=== PATIENT | female | born 1960 | race Caucasian/White ===

== ENCOUNTER 2022-05-14 07:51 | Outpatient (CLI) | payer SELFPAY ==
--- NOTE | 2022-05-14 08:15 | MR_ITS ---
[address] [address] Phone:?[phone] Fax:?[phone] Referring Physician Information: Kike Zuluaga M.D. [id number] [facility] [place] [address] Phone:?[phone] Fax:?[phone] Patient:Myriam Simpson D.O.B:?1960 Sex:?Female Phone:?[phone] [facility] MRN:?[id number] Exam Date:?05/14/2022 ? EXAM: MRI of the LEFT SHOULDER, without contrast CLINICAL INFORMATION: Female, 62 years old, with left shoulder pain since a fall on ice. INDICATION: Evaluate for rotator cuff tear. PRIOR SURGERY: None reported. PLAIN FILMS: Shoulder radiographs dated 04/30/2022. COMPARISONS: No prior MRIs available. TECHNICAL INFORMATION: Using a 1.5T MR scanner and a localizing surface coil: coronal obliques: PD, T2, STIR sagittal obliques: PD, T2 axials: PD, T2 SEDATION: None CONTRAST: None FINDINGS: Bones: Proximal humerus: Moderate edema-like signal is present throughout the posterolateral aspect of the greater tuberosity, without a discrete fracture (coronal STIR series 4 images 15-17). Moderate overlying periosteal edema is also present. No humeral Hill-Sachs or reverse Hill-Sachs lesion/impaction or contusion. Glenoid: No fracture or marrow edema/pathology. No osseous Bankart lesion. Rotator cuff and muscles/tendons: Supraspinatus: Mild supraspinatus tendinopathy, without tendon tear or muscle atrophy. Infraspinatus: No tendinopathy, tear or atrophy. Teres minor: No tendinopathy, tear or atrophy. Subscapularis: Mild tendinopathy of the superior distal subscapularis, without tendon tear or muscle atrophy. Deltoid: No strain or atrophy. Coracoacromial arch: Acromion morphology: The acromion has type II morphology. No discrete subacromial osseous spur or os acromiale. Acromiohumeral space: The acromiohumeral space measures 5.6 mm at its narrowest point (osseous distance). Coracohumeral space: The coracohumeral space is within normal limits. Acromioclavicular joint: Joint: No acute injury, arthropathy, or inferior hypertrophy. Ligaments: Coracoclavicular ligaments are intact. Bursae: Subacromial-subdeltoid: Mild subacromial-subdeltoid bursitis. Subcoracoid: No convincing subcoracoid bursal thickening/bursitis. Biceps tendon: The long head of the biceps tendon is present within the bicipital groove. The intra-articular and extra-articular segments are intact without tendinosis, tenosynovitis, or displacement. Glenohumeral joint: Effusion/cyst: No significant glenohumeral joint effusion. Articular cartilage: Humeral head: No osteochondral abnormalities. Glenoid: No osteochondral abnormalities. Loose bodies: No discrete intra-articular body within the joint. Labrum:?Intrasubstance degeneration and fraying is present throughout the superior labrum, but is of doubtful clinical significance (coronal PD series 5 images 10-15). Inferior glenohumeral ligament/axillary pouch:?Mild-moderate thickening of inferior capsuloligamentous structures (coronal PD series 5 images 11-16). Additionally, there is soft tissue thickening throughout the rotator interval (sagittal PD series 7 images 8-13). IMPRESSION: 1. Moderate contusion involving the posterolateral aspect of the greater tuberosity, without fracture. 2. Mild supraspinatus & subscapularis tendinopathy. No rotator cuff tendon tear. 3. Mild narrowing of the acromiohumeral space with mild subacromial-subdeltoid bursitis. However, there is no AC joint arthropathy or evidence of impingement at the AC joint. 4. Findings in keeping with any clinical symptoms of adhesive capsulitis. 5. Intrasubstance degeneration fraying of the superior labrum, which is of doubtful clinical significance. 6. No tendinopathy, displacement, or tear of the biceps long head tendon. 7. No full-thickness chondral defect or evidence of glenohumeral joint osteoarthritis. BC Electronically signed on 05/14/2022 11:05:00 AM by Nathaniel Bowles M.D.
== END 2022-05-14 07:52 | disposition home or self-care (01) ==
PROVIDERS: PCP Family Medicine; Visit Provider Orthopaedic Surgery Sports Medicine
DX: M25.512 Pain in left shoulder (principal); M75.52 Bursitis of left shoulder; M75.02 Adhesive capsulitis of left shoulder
CPT/HCPCS: 73221

== ENCOUNTER 2024-07-23 07:19 | Outpatient (CLI) | payer MEDICARE, SELFPAY ==
--- NOTE | 2024-07-23 10:04 | P.ANES_ITS ---
Anesthesia Charges Start Date/Time Anesthesia Start Date: 07/23/24 Anesthesia Start Time: 09:45 Stop Date/Time Anesthesia Stop Date: 07/23/24 Anesthesia Stop Time: 10:04 Coding CPT Codes CPT Codes: BENITO LWR INTST NDVA NOS - 10282 ([id number]) P1 - NORMAL HEALTHY PATIENT, QK - WATER RECLAMATION SYSTEMS OPERATOR 2-4 CNCRNT ANES PROC, QX - POLYMER CHEMIST SVC W/ MED DIRECTION
--- NOTE | 2024-07-23 10:04 | W.ANESCHARGE ---
Anesthesia Charges Start Date/Time Anesthesia Start Date: 07/23/24 Anesthesia Start Time: 09:45 Stop Date/Time Anesthesia Stop Date: 07/23/24 Anesthesia Stop Time: 10:04 Coding CPT Codes CPT Codes: BENITO LWR INTST NDME NOS - 99595 ([id number]) P1 - NORMAL HEALTHY PATIENT, QK - SOAKING PIT OPERATOR 2-4 CNCRNT ANES PROC, QX - CATERING COORDINATOR SVC W/ MED DIRECTION
--- NOTE | 2024-07-23 10:11 | P.ANES_ITS ---
Anesthesia Charges Start Date/Time Anesthesia Start Date: 07/23/24 Anesthesia Start Time: 09:45 Stop Date/Time Anesthesia Stop Date: 07/23/24 Anesthesia Stop Time: 10:04 Coding CPT Codes CPT Codes: BENITO LWR INTST NDCA NOS - 15670 ([id number]) P1 - NORMAL HEALTHY PATIENT, QK - PLANT SCIENCE PROFESSOR 2-4 CNCRNT ANES PROC, QX - WOOD PLANER SVC W/ MED DIRECTION
--- NOTE | 2024-07-23 10:11 | W.ANESCHARGE ---
Anesthesia Charges Start Date/Time Anesthesia Start Date: 07/23/24 Anesthesia Start Time: 09:45 Stop Date/Time Anesthesia Stop Date: 07/23/24 Anesthesia Stop Time: 10:04 Coding CPT Codes CPT Codes: BENITO LWR INTST NDNM NOS - 13619 ([id number]) P1 - NORMAL HEALTHY PATIENT, QK - POWER BRAKE OPERATOR 2-4 CNCRNT ANES PROC, QX - AUDIO ENGINEER SVC W/ MED DIRECTION
== END 2024-07-23 07:20 | disposition home or self-care (01) ==
LOC: OP CLINIC 07:21
PROVIDERS: PCP Family Medicine; Visit Provider Internal Medicine Gastroenterology
DX: Z12.11 Encounter for screening for malignant neoplasm of colon (principal); D12.2 Benign neoplasm of ascending colon
CPT/HCPCS: 00811; 45380; 88305; J2704

== ENCOUNTER 2024-08-23 10:30 | Outpatient (RCR) | payer MEDICARE, SELFPAY ==
--- NOTE | 2024-07-30 07:42 | PT.OPE ---
PT [facility] Outpatient Eval PT [facility] Outpatient Eval Start: 07/28/24 10:33 Freq: Status: Active Protocol: Document 07/29/24 07:34 ARR (Rec: 07/29/24 11:38 ARR [id number]) E-signed By Do Ford DPT Physical Therapy Outpatient Evaluation Insurance Information Recert Due Date 09/28/24 Insurance Name Medicare B Medical Diagnosis N32.81 overactive bladder R35.0 urinary frequency R19.4 frequent bowel movements Treating Diagnosis K59.00 Constipation, unspecified R35.0 urinary frequency Referring MD Glenna Najera, DO ([facility]) Subjective Subjective -Subjective: Pt noting urinating 2-3x at night this is a concern. Ongoing x 12 months. Has been taking Statin since spring 2021. Feels she isn?t very efficient with the urination. Looking to improve quality of life. Had a 9# 4 oz baby 30 yrs ago, feels everything is maybe sagging. 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 When diagnosed with atherosclerosis was referred here. -Urinary: Leakage every once in a while when laughing ? infrequent, less than 1x/month. --Delay of urination: yes --Urinary urgency (any incontinence): no --Strain to start or stop urine stream: slow flow. Does at times strain /push a little bit to get more urine out. Does note incomplete emptying. --Hydration: swimming drinks 20 oz then tries to get another 22 oz. Maybe 46 oz water. 16 oz coffee. --Daytime urination: 5-6x/day --Nocturia: 2-3x/night --Dysuria: urination --Pressure/heaviness: no -Bowel: Was checked for prolapse, provider didn?t think there was colon --Frequency: 1-3x/day. This has changed, feels more sluggish ? doesn?t feel as efficient. Has been taking Metamucil to help --[place] chart: went from type 7 then cut back on coffee and it transitioned to type 1-3, maybe 4. --Constipation: No --Do you feel bowels fully evacuate with BM: no --Fecal leakage: no --Fecal urgency: no --Straining with BM: no --Pain with BM: no --Do you use pressure with hands to assist with BM: has used pressure externally ?pushed more on the back --Flatus incontinence: no --Abdominal/rectal pain or symptoms: infrequently will have bad stomach cramps, will lay in bed with a heating pad. Will feel like stool is stuck. Maybe every 3 months this occurs. --Do you take bowel supplements: Metamucil infrequently , not regular. --Fiber intake: was recommended to increase to at least 25 g. -Sexual: no pain -Menstrual history: --Menopause age: around 58 y/o. Was prescribed vaginal estrogen by provider. Was a compounded Estriol ellage cream -: G/P 04/04 9# and 7#. Vaginal births. --Forceps or vacuum: no --Tearing or episiotomy: no stitches OTHER: --Any chronic yeast infections: no --Chronic UTIs: no --Vaginal dryness: no --Medications taken for bladder: none -Surgical PMHx: none -PMHx: osteopenia, elevated coronary artery calcium score, OAB, hyperlipidemia, athralgia -Current exercise: Does swim 3 days per week, has stayed active. Does dry land on off days when not swimming, 2x/wk. Does some sit ups, bosu ball. Does some things for knees as they are struggling. Not sure how to engage core or how to do a correct kegel. -Orthopedic issues: bilateral knee pain -Medications: meloxicam tales 1-2x/month, hydroxyzine ( Every 6 hrs prn for anxiety), vaginal estrogen cream, rosuvastatin ? take x 1 tablet by mouth daily at bed time taken for hyperlipidemia -Goals: find out how to do a kegel. Reduce nocturia. Strengthening pelvic floor. Improve bowel habits and health. Objective Other/Pertinent -Slouched sitting and standing posture. Fwd head and Objective rounded shoulders. -Non-antalgic gait noted . Assessment Assessment/ Pt is a 64 y/o female who presents with concerns of Impression frequent bowel movements, increased night time urination. Signs and symptoms likely indicating / consistent with nocturia with possible underlying pelvic floor muscle tension. Pt also notes having history of constipation, this could also likely be adversely impacting nocturia. Focus of session on initial patient education and subjective gathering due to complex PMHx. Pt also having many questions this date regarding symptoms and contributing factors. Pt will only be able to attend PT x 4 sessions before leaving out of state to take care of grandkids. Pt likely to benefit from continued PT upon return back for maximal therapeutic improvement. Patient also has notable objective findings including slouched, rounded shoulders and reduced postural awareness also likely contributing to the problem. Future sessions to focus on completion of internal and external assessments to gather additional objective information regarding contributing factors to symptoms. Pt was recently started on vaginal estrogen cream, estriol per pt report due to MD noting vaginal atrophy, this also likely contributing to pt's symptoms. Patient is a good candidate for skilled therapy to target deficits described above. Skilled PT intervention is necessary for use of therapeutic exercise manual therapy, neuromuscular re-education, gait training, and therapeutic activity. Functional impairments include difficulty with: urinary frequency. See appropriate sections of PT eval for complete list of goals and POC. D/C plan and criteria is for pt to achieve the goals as listed below or until max rehab potential is met. Pt was agreeable with plan of care and goals established. Evaluation and internal vaginal PFM assessment/ treatment with patient consent was requested and obtained. Plan of Care Rehabilitation Good Potential Physical Therapy [facility] (within 2 visits) Goals 1) Pt will initiate HEP without increased symptoms 2) Pt will report at least 25% improvement in symptoms since start of therapy for improved PF health LTG (within 4visits ) 1) pt will be indep in HEP for senior living mgmt of symptoms 2) Pt will report nocturia 1-2x/night for improved overall improved sleep health 3) pt will report stool type 3-4 on [place] chart 4) Pt will report ability to fully empty bowels at least 70% of the time 5) Pt will report at least 50% improvement in symptoms since start of therapy for improved PF health Treatment Plan/ Gait Training,Joint Mobilization,Manual Therapy, Direct Interventions Neuromuscular Re-ed,Self-Care/Home Management, Therapeutic Activities,Therapeutic Exercises Frequency/Duration 1x/wk x 4 visits in 60 days Patient Will Be Skills Plateau,Independent w/HEP Discharged From Therapy Evaluation Billing Untimed Code 30 Treatment Minutes Complexity Low Certification Information Initial 07/30/24 Certification Date Ending Certification 09/28/24 Date Provider Signature Yes Required Provider Signature POC & Medical Necessity Shows Agreement With Physician NPI Number Write NPI# Here Physician Comment/ : Change Physician Signature Please Sign/Date Here & Date Requested
== END 2024-11-03 15:20 | disposition home or self-care (01) ==
PROVIDERS: PCP Family Medicine; Visit Provider Family Medicine
DX: N32.81 Overactive bladder (principal); R35.0 Frequency of micturition; K59.00 Constipation, unspecified; Z51.89 Encounter for other specified aftercare
CPT/HCPCS: 97110; 97161; 97162; 97535